=== PATIENT | female | born 1970 | race Native Hawaiian/Other Pacific Islander ===

== ENCOUNTER 2016-12-07 14:52 | Outpatient (CLI) | payer OTHER | END 2016-12-07 14:53 | disposition home or self-care (01) | LOC: LABHHL 14:52 | PROVIDERS: ATTEND Surgery | DX: R92.0 Mammographic microcalcification found on diagnostic imaging of breast (principal) | CPT/HCPCS: 88305 ==

== ENCOUNTER 2017-02-04 12:56 | Outpatient (CLI) | payer OTHER ==
--- NOTE | 2017-02-04 14:06 | Mammography Report ---
NEEDLE LOCALIZATION AND HOOKWIRE PLACEMENT LEFT BREAST:02/04/17 CLINICAL: Calcifications. COMPARISON: 12/07/16 post biopsy mammogram. FINDINGS: Using mammographic guidance, 1% lidocaine local anesthesia and sterile technique, a 5.0-cm Jeong hookwire was placed from a medial approach to localize a group of calcifications.. Two views demonstrated satisfactory targeting. The hookwire was deployed and an additional CC view was obtained. The patient tolerated the procedure well and there were no apparent complications. IMPRESSION: Uncomplicated hookwire placement left breast.
--- NOTE | 2017-02-04 15:07 | Mammography Report ---
SPECIMEN RADIOGRAPH LEFT BREAST: 02/04/17 12:56:00 CLINICAL: calcifications. FINDINGS: The targeted calcifications and hookwire is are identified within the specimen. IMPRESSION: Removal of the targeted calcifications.
== END 2017-02-04 12:57 | disposition home or self-care (01) ==
LOC: SPVWC 12:56
PROVIDERS: ATTEND Surgery
DX: R92.1 Mammographic calcification found on diagnostic imaging of breast (principal)
CPT/HCPCS: 76098

== ENCOUNTER 2017-02-05 12:24 | Outpatient (CLI) | payer OTHER | END 2017-02-05 12:25 | disposition home or self-care (01) | LOC: LABHHL 12:24 | PROVIDERS: ATTEND Surgery | DX: R92.0 Mammographic microcalcification found on diagnostic imaging of breast (principal) | CPT/HCPCS: 88305; 88307 ==